=== PATIENT | female | born 1975 | race Hispanic/Latino ===

== ENCOUNTER 2021-07-22 11:48 | Emergency (ER) | payer SELFPAY ==
[2021-07-22] VITALS (7 sets, daily range): BP systolic 141–174; BP diastolic 89–99; PULSE 77–96; RESP 11–25; TEMP 36.7; O2SAT 96–100; BMI 35.7
--- NOTE | 2021-07-22 11:54 | ED.HA ---
HPI - Headache General Chief Complaint: Chest Pain Stated Complaint: Migraine Time Seen by Provider: 07/22/21 11:49 History of Present Illness HPI Narrative: 46-year-old female who has history of anxiety and brain tumor presenting today with palpitations. She was seen evaluated at Neurology at [facility] yesterday. She said that she was found to have a brain for added urgent care. She went for evaluation yesterday and told to follow-up with her primary care provider. No history of seizures. Today she got extremely anxious had some heart palpitations and difficulty breathing with some numbness and tingling. She denies any worsening headache nausea vomiting shortness breath or cough. Now the emergency department with resolved. She overall is a poor historian. Review of Systems Review of Systems Narrative: GENERAL: Denies chills, fatigue, malaise, fever, sweats, travel HEENT: Denies sinus pain, ear pain, sore throat, difficulty swallowing, neck pain RESPIRATORY: Denies dyspnea, cough, wheezing, hemoptysis, sputum. CARDIOVASCULAR: See HPI GASTROINTESTINAL: Denies nausea, vomiting, abdominal pain, diarrhea, constipation, melena. : Denies dysuria, frequency, incontinence, hematuria, urinary retention, flank pain. MUSCULOSKELETAL: Denies weakness, joint pain, or bony pain SKIN: No rash, no erythema, no pruritus NEUROLOGIC: See HP PSYCHIATRIC: See HPI 12 point review of systems is negative except for those stated above and HPI Patient History Social History Smoking Status: Never smoker Exam Initial Vital Signs Initial Vital Signs: Vital Signs Pulse Rate 96 H 07/22/21 11:53 Respiratory Rate 19 07/22/21 11:53 Pulse Oximetry 98 07/22/21 11:53 GENERAL: Alert pleasant 46-year-old male no acute distress HEENT: Head atraumatic,EOMI, pupils reactive, face symmetric, moist mucous membranes Neck supple CARDIOVASCULAR: Regular rate and rhythm without murmurs, rubs or gallops. RESPIRATORY: Breath sounds equal bilaterally, no wheezes rales or rhonchi. ABDOMEN: Soft, nontender. Normoactive bowel sounds all 4 quadrants. No guarding or rebound. EXTREMITIES: Normal range of motion, no clubbing or edema. Neurovascularly intact NEUROLOGICAL: Alert and oriented x4.Normal gait and speech. [employer] strength equal bilaterally moving all extremities SKIN: Warm, dry, no laceration, no petechiae, no rashes or lesions. Course Orders Ordered: ED Orders 07/22/21 11:59 CT head/brain wo con Stat XR chest 1V Stat EKG-12 Lead Stat 07/22/21 12:28 Complete Blood Count AUTO DIFF Stat Comprehensive Metabolic Panel Stat Lipase Stat Troponin & CK Cardiac Panel Stat Vital Signs Vital signs: Vital Signs - 8 hr 07/22/21 11:53 07/22/21 12:00 07/22/21 12:30 Temperature 98.0 F Pulse Rate 96 H 91 H 78 Respiratory Rate 19 17 16 Blood Pressure 166/95 H 174/90 H Pulse Oximetry 98 99 100 07/22/21 13:00 07/22/21 13:30 07/22/21 14:00 Temperature Pulse Rate 82 77 82 Respiratory Rate 25 H 24 11 L Blood Pressure Pulse Oximetry 100 98 96 07/22/21 14:02 Temperature Pulse Rate 81 Respiratory Rate 14 Blood Pressure 141/89 H Pulse Oximetry 96 MDM - Headache Lab Data Result diagrams: 07/22/21 12:28 07/22/21 12:28 Labs: Lab Results 07/22/21 07/22/21 Range/Units 12:28 12:28 WBC 7.0 (4.5-11.0) X10^3/uL RBC 3.93 L (4.0-5.2) X10^6/uL Hgb 12.2 (12.0-16.0) g/dL Hct 35.4 L (36-46) % MCV 90.2 (80-100) fL MCH 31.0 (26-34) PG MCHC 34.4 (30-36) % RDW 13.3 (11.6-14.8) % Plt Count 340 (150-400) X10^3/uL Neut % (Auto) 60.0 (50-75) % Lymph % (Auto) 29.1 (25-40) % Liberty % (Auto) 7.7 (3-14) % Eos % (Auto) 2.7 (2-4) % Baso % (Auto) 0.5 (0-2) % Neut # (Auto) 4200 (0115-7689) /uL Lymph # (Auto) 2000 (8054-2501) /uL Liberty # (Auto) 500 (0-900) /uL Eos # (Auto) 200 (0-450) /uL Baso # (Auto) 0 (0-100) /uL Sodium 141 (137-145) mmol/L Potassium 3.3 L (3.4-5.1) mmol/L Chloride 106 (98-107) mmol/L Carbon Dioxide 24 (22-32) mmol/L BUN 5 L (7-17) mg/dL Creatinine 0.60 (0.52-1.04) mg/dL Estimated GFR > 60 (>60) mL/min BUN/Creatinine Ratio 8.3 (6-22) Glucose 92 (70-100) mg/dL Calcium 8.8 (8.4-10.2) mg/dL Total Bilirubin 0.3 (0.2-1.3) mg/dL AST 38 H (14-36) IU/L ALT 24 (<35) IU/L Alkaline Phosphatase 72 (38-126) U/L Total Creatine Kinase 53 (30-135) U/L CK-MB (CK-2) TNP CK-MB (CK-2) Rel Index TNP Troponin I < 0.012 (0.01-0.034) ng/mL Total Protein 7.9 (6.3-8.2) g/dL Albumin 4.4 (3.5-5.0) g/dL Globulin 3.5 (1.7-4.1) g/dL Albumin/Globulin Ratio 1.3 (1.0-2.8) Lipase 116 (23-300) U/L Imaging Data CT scan - head: Radiologist's Impression: FABIO Wilhelm [id number] CT Scan Report Signed Patient: Milka Shanks MR#: [id number] : 1975 Acct:[id number] Age/Sex: 46 / F Date of Service: 07/22/21 Loc: ED Accession Number: [id number] ?? Procedure: CT head/brain wo con Ordering Provider: Noemi Tidwell D.O. PROCEDURE:? CT HEAD/BRAIN WO CON ? INDICATIONS:? known tumor? headaches ? TECHNIQUE:? Noncontrast 4.5 mm thick angled axial sections acquired from the foramen magnum to the vertex, with coronal and sagittal reformats.? For radiation dose reduction, the following was used:? automated exposure control, adjustment of mA and/or kV according to patient size.? ? COMPARISON:? [facility], CT, BRAIN W/O CONTRAST, 04/19/2013, 2:43.? [facility], CT, BRAIN W/O CONTRAST, 07/16/2011, 23:32. ? FINDINGS:? Image quality:? Excellent.? ? CSF spaces:? Basal cisterns are patent.? No extra-axial fluid collections.? Ventricles are normal in size and shape.? ? Brain:? No midline shift.? No intracranial masses or hemorrhage.? Cerebral and cerebellar cortical atrophy is seen advanced for patient's age.? Blake-white matter interface is normal.? ? Skull and face:? Calvarium and visualized facial bones are intact, without suspicious lesions.? ? Sinuses:? Visualized sinuses and mastoids are clear.? ? IMPRESSION: 1. No CT evidence of acute intracranial abnormalities.? No gross intracranial lesion, mass effect or midline shift. 2. Cerebral atrophy advanced for patient's age. ? ? Dictated by: Porfirio Kidd M.D. on 07/22/2021 at 12:52 ? ? Approved by: Porfirio Kidd M.D. on 07/22/2021 at 12:59 ? Chest x-ray: Radiologist's Impression: XRay Report Signed Patient: Milka Shanks MR#: [id number] : 1975 Acct:[id number] Age/Sex: 46 / F Date of Service: 07/22/21 Loc: ED Accession Number: [id number] ?? Procedure: XR chest 1V Ordering Provider: Noemi Tidwell D.O. PROCEDURE:? XR CHEST 1V ? INDICATIONS:? chest pain ? TECHNIQUE:? One view of the chest was acquired.? ? COMPARISON:? [facility], CR, XR CHEST 1 VIEW, 06/04/2020, 6:16. ? FINDINGS:? ? Surgical changes and devices:? None.? ? Lungs and pleura:? Lungs are clear.? No pleural effusions or pneumothorax.? ? Mediastinum:? Mediastinal contours appear normal.? Heart size is normal.? ? Bones and chest wall:? No suspicious bony lesions.? Overlying soft tissues appear unremarkable.? ? IMPRESSION:? No acute pulmonary process. ? ? Dictated by: Annalisa Deng M.D. on 07/22/2021 at 13:42 ? ? ECG Data Interpretation: Normal sinus rhythm rate 88 AZ interval 124 QRS [address] changes no T-wave inversions no priors MDM Narrative Medical decision making narrative: Patient says that she was seen [facility] yesterday for possible tumor however [address] [place] [address] this not have any records on her. CT today does not show any evidence of tumor. Blood work is overall reassuring. She is neurologically intact. At this time I see no need for any further testing or imaging. She has an appointment with her primary care provider on the . Discharge Plan Departure Patient Disposition: Home Clinical Impression: Anxiety Instructions: DI for Anxiety -- Adult Activity Restrictions/Additional Instructions: *You have been diagnosed with anxiety *What to do: At this time her CT scan of your brain did not show any tumor. Her blood work was reassuring. Please follow-up with her primary care provider. I was unable to get records from [place] and the neurologist you saw *Continue to take medications as directed *Follow up with your primary care provider in 2-3 days or call [phone] *Return to ER if you should have increasing headache persistent vomiting, chest pain shortness of breath palpitations or any new, worsening or concerning symptoms Stand Alone Forms: Work Release Note
--- NOTE | 2021-07-22 11:59 | DI.RAD.S_ITS ---
PROCEDURE: XR CHEST 1V INDICATIONS: chest pain TECHNIQUE: One view of the chest was acquired. COMPARISON: [facility], CR, XR CHEST 1 VIEW, 06/04/2020, 6:16. FINDINGS: Surgical changes and devices: None. Lungs and pleura: Lungs are clear. No pleural effusions or pneumothorax. Mediastinum: Mediastinal contours appear normal. Heart size is normal. Bones and chest wall: No suspicious bony lesions. Overlying soft tissues appear unremarkable. IMPRESSION: No acute pulmonary process. Dictated by: Annalisa Deng M.D. on 07/22/2021 at 13:42 Approved by: Annalisa Deng M.D. on 07/22/2021 at 13:42
--- NOTE | 2021-07-22 11:59 | DI.CT.S_ITS ---
PROCEDURE: CT HEAD/BRAIN WO CON INDICATIONS: known tumor? headaches TECHNIQUE: Noncontrast 4.5 mm thick angled axial sections acquired from the foramen magnum to the vertex, with coronal and sagittal reformats. For radiation dose reduction, the following was used: automated exposure control, adjustment of mA and/or kV according to patient size. COMPARISON: [facility], CT, BRAIN W/O CONTRAST, 04/19/2013, 2:43. [facility], CT, BRAIN W/O CONTRAST, 07/16/2011, 23:32. FINDINGS: Image quality: Excellent. CSF spaces: Basal cisterns are patent. No extra-axial fluid collections. Ventricles are normal in size and shape. Brain: No midline shift. No intracranial masses or hemorrhage. Cerebral and cerebellar cortical atrophy is seen advanced for patient's age. Blake-white matter interface is normal. Skull and face: Calvarium and visualized facial bones are intact, without suspicious lesions. Sinuses: Visualized sinuses and mastoids are clear. IMPRESSION: 1. No CT evidence of acute intracranial abnormalities. No gross intracranial lesion, mass effect or midline shift. 2. Cerebral atrophy advanced for patient's age. Dictated by: Porfirio Kidd M.D. on 07/22/2021 at 12:52 Approved by: Porfirio Kidd M.D. on 07/22/2021 at 12:59
[2021-07-22 12:37] LABS: Add Manual Diff / Slide Review NO; Basophils Absolute Auto 0 /uL (0-100); Basophils Percent Auto 0.5 % (0-2); Eosinophils Absolute Auto 200 /uL (0-450); Eosinophils Percent Auto 2.7 % (2-4); Hematocrit 35.4 % (36-46); Hemoglobin 12.2 g/dL (12.0-16.0); Lymphocytes Absolute Auto 2000 /uL (1100-4500); Lymphocytes Percent Auto 29.1 % (25-40); Mean Corpuscular HGB Conc 34.4 % (30-36); Mean Corpuscular Volume 90.2 fL (80-100); Monocytes Absolute Auto 500 /uL (0-900); Monocytes Percent Auto 7.7 % (3-14); Neutrophils Absolute Auto 4200 /uL (1500-7000); Platelet Count 340 X10^3/uL (150-400); Red Blood Cell Count 3.93 X10^6/uL (4.0-5.2); Red Cell Distribution Width 13.3 % (11.6-14.8)
[2021-07-22 12:47] LABS: Alanine Aminotransferase 24 IU/L (<35); Albumin 4.4 g/dL (3.5-5.0); Albumin Globulin Ratio 1.3 (1.0-2.8); Alkaline Phosphatase 72 U/L (38-126); Aspartate Aminotransferase 38 IU/L (14-36); BUN Creatinine Ratio 8.3 (6-22); Bilirubin Total 0.3 mg/dL (0.2-1.3); Blood Urea Nitrogen 5 mg/dL (7-17); Calcium 8.8 mg/dL (8.4-10.2); Carbon Dioxide 24 mmol/L (22-32); Chloride 106 mmol/L (98-107); Creatine Kinase 53 U/L (30-135); Estimated Glomerular Filt Rate > 60 mL/min (>60); Globulin 3.5 g/dL (1.7-4.1); Glucose 92 mg/dL (70-100); HEMOLYSIS < 15 (0-50); Lipase 116 U/L (23-300); Potassium 3.3 mmol/L (3.4-5.1); Sodium 141 mmol/L (137-145); Total Protein 7.9 g/dL (6.3-8.2)
[2021-07-22 12:59] LABS: Troponin I < 0.012 ng/mL (0.01-0.034)
== END 2021-07-22 14:15 | disposition home or self-care (01) ==
PROVIDERS: Emergency Provider Emergency Medicine
DX: F41.9 Anxiety disorder, unspecified (principal); R07.9 Chest pain, unspecified
CPT/HCPCS: 36415; 70450; 71045; 80053; 82550; 83690; 84484; 85025; 93005; 93010; 99284